=== PATIENT | male | born 1945 | race Caucasian/White ===

== ENCOUNTER 2018-01-25 06:20 | Day surgery (SDC) | payer MEDICARE, BC ==
[~2018-01-25] VITALS: Ht 177.8 cm; Wt 92.5 kg
--- NOTE | 2018-01-25 07:55 | NUR ---
01/25/18 0755 Lynnette Jang 4806 PT ARRIVED IN PACU SLEEPY WITH NO C/O'S. ABD FIRM. ENCOURAGED PT TO PASS FLATUS. 0750 DR AT BEDSIDE TALKING TO PT. OXYGEN DECREASED TO 2L VIA NC WITH SATS 95%.
--- NOTE | 2018-01-25 13:21 | NUR ---
PT IN FOR FOLLOW UP SCOPE. HE IS ALERT, ORIENTED AND SUPPORTED BY HIS . THEY BOTH SEEM TO BE PREPARED, PT DEALT WITH PREP APPROPRIATELY. PT DECLINED PRAYER AT THIS TIME. WILL FOLLOW NEEDED
--- NOTE | 2018-01-26 15:24 | OR ---
[facility] [address], [place] [address] Signed DATE OF OPERATION: 01/25/2018 SURGEON: Seng Jha MD PREOPERATIVE DIAGNOSIS: History of sigmoid resection for diverticulosis in 2006, colon screening. POSTOPERATIVE DIAGNOSIS: Normal colon to cecum. PROCEDURE: Total colonoscopy to cecum. ANESTHESIA: Intravenous sedation, fentanyl 100 mcg, Versed 4 mg. INDICATION: This 72-year-old white man is a patient of Dr. Askew, now EARLE Ortiz and has undergone sigmoid resection by ky for diverticular disease in 2006. He is referred for colon screening. He is having no bleeding, diarrhea or constipation. He has no family history of colon cancer. He is admitted to undergo colonoscopy. He understands the risks of bleeding, infection, perforation. FINDINGS: The prep was excellent. Complete colonoscopy was undertaken of the cecum without problem. The anastomosis of the coloproctostomy was widely patent. He had minimal diverticular changes of the remaining left colon. DESCRIPTION OF PROCEDURE: The patient was brought to the endoscopy suite and placed in lateral decubitus position and given intravenous sedation to the point of slurred speech and nystagmus. Digital rectal examination was normal. An Olympus video colonoscope was passed in the rectum and manipulated throughout the colon ultimately intubating the cecum itself. The ileocecal valve and appendiceal orifice were normal. The scope was withdrawn from that point and examination throughout showed no sign of abnormality. The area of the coloproctostomy was carefully inspected and was widely patent. There were few scattered diverticula proximal to the anastomosis, but minimal in amount and extent. Retroflexed view of the rectum was normal. The scope was removed and the patient was taken to recovery room in good Electronically Signed By: SENG JHA MD 01/26/18 1524 PATIENT NAME: SAMANTHA MENDOZA Mora OPERATIVE REPORT DATE OF : 43 REPORT #: [id number] PHYSICIAN: SENG JHA MD PCP: CHELI MARISCAL MD REPORT IS CONFIDENTIAL AND NOT TO BE RELEASED WITHOUT AUTHORIZATION [facility] [address], [place] [address] Signed condition. CONCLUDING DIAGNOSIS: Normal colon and widely patent anastomosis from coloproctostomy. PLAN: Recommend high-fiber diet. Repeat colonoscopy in 10 years if clinically appropriate. MD JIMY Saldana/EZL /[id number] cc: EARLE Ortiz Copies: ~ Electronically Signed By: SENG JHA MD 01/26/18 1524 PATIENT NAME: REJISAMANTHA OPERATIVE REPORT DATE OF : 43 REPORT #: [id number] PHYSICIAN: SENG JHA MD PCP: CHELI MARISCAL MD REPORT IS CONFIDENTIAL AND NOT TO BE RELEASED WITHOUT AUTHORIZATION
== END 2018-01-25 08:18 | disposition home or self-care (01) ==
LOC: DS 06:20 → OPS 06:20 → DS 06:45 → OPS 08:18
PROVIDERS: Surgery
PROC: 0DJD8ZZ Inspection of Lower Intestinal Tract, Via Natural or Artificial Opening Endoscopic (ICD-10-PCS; principal; 2018-01-25 06:45)
DX: Z12.11 Encounter for screening for malignant neoplasm of colon (principal); K57.30 Diverticulosis of large intestine without perforation or abscess without bleeding; K43.2 Incisional hernia without obstruction or gangrene; Z87.19 Personal history of other diseases of the digestive system; Z90.49 Acquired absence of other specified parts of digestive tract; Z88.5 Allergy status to narcotic agent
CPT/HCPCS: 99153; G0500; J2250; J3010; J7120

== ENCOUNTER 2018-10-31 14:37 | Emergency (ER) | payer MEDICARE, BC ==
[~2018-10-31] VITALS: Ht 177.8 cm; Wt 92.5 kg
--- OUTSIDE RECORDS SUMMARY | ~2018-10-31 | XMS | Clinical Summary ---
Demographics + + + | Address | [address] | | | [place] [address] | + + + | Home Phone | | + + + | Preferred Language | Unknown | + + + | Marital Status | | + + + | Holiness Affiliation | Unknown | + + + | Race | Unknown | + + + | Ethnic Group | Unknown | + + + Author + + + | Author | [facility] | | | and [place] | + + + | Organization | [facility] | | | and [place] | + + + | Address | Unknown | + + + | Phone | Unavailable | + + + Support + + + + + | Name | Relationship | Address | Phone | + + + + + | Nedra Naylor | ECON | [address] | | | | | [place] [address] | | + + + + + Care Team Providers + +------+ + | Care Price Accuracy Supervisor Name | Role | Phone | + +------+ + | No, Physician | PP | Unavailable | + +------+ + Allergies + + + + + + | Active Allergy | Reactions | Severity | Noted | Comments | | | | | Date | | + + + + + + | Morphine | Nausea And Vomiting | | 12/11/19 | | | | | | 18 | | + + + + + + Medications + + + +---------+------+------+-------+ | Medication | Sig | Dispensed | Refills | Star | End | Statu | | | | | | t | Date | s | | | | | | Date | | | + + + +---------+------+------+-------+ | ondansetron | Take 2 tablets by | 12 | 0 | 06/0 | | Activ | | (ZOFRAN ODT) 4 mg | mouth every 8 hours | tablet | | 7/20 | | e | | disintegrating | as needed for Nausea | | | 18 | | | | tablet | or Vomiting (For | | | | | | | | vertigo). | | | | | | + + + +---------+------+------+-------+ Active Problems No known active problems Social History + +-------+ +--------+------+ | Tobacco Use | Types | Packs/Day | Years | Date | | | | | Used | | + +-------+ +--------+------+ | Never Smoker | | | | | + +-------+ +--------+------+ + +---+---+---+ | Smokeless Tobacco: | | | | | Never Used | | | | + +---+---+---+ + + +---------+ + | Alcohol Use | Drinks/We | oz/Week | Comments | | | ek | | | + + +---------+ + | Yes | | | occasional | + + +---------+ + + + + | Sex Assigned at | Date Recorded | | | | + + + | Not on file | | + + + + + + + | Job Start Date | Occupation | Industry | + + + + | Not on file | Not on file | Not on file | + + + + + + + + | Travel History | Travel Start | Travel End | + + + + + + | No recent travel history available. | + + Last Filed Vital Signs + + + + | Vital Sign | Reading | Time Taken | + + + + | Blood Pressure | 121/71 | 12/10/2017799 PDT | + + + + | Pulse | 55 | 12/10/2017799 PDT | + + + + | Temperature | 35.8 C (96.4 F) | 12/10/2017652 PDT | + + + + | Respiratory Rate | 16 | 12/10/2017652 PDT | + + + + | Oxygen Saturation | 92% | 12/10/2017799 PDT | + + + + | Inhaled Oxygen | - | - | | Concentration | | | + + + + | Weight | 92.5 kg (204 lb) | 12/10/2017652 PDT | + + + + | Height | 177.8 cm (5' 10") | 12/10/2017652 PDT | + + + + | Body Mass Index | 29.27 | 12/10/2017652 PDT | + + + + Plan of Treatment + + + + + | Health Maintenance | Due Date | Last Done | Comments | + + + + + | Vaccine: | | | | | Dtap/Tdap/Td (1 - | 3 | | | | Tdap) | | | | + + + + + | Vaccine: Zoster (1 | | | | | of 2) | 4 | | | + + + + + | Vaccine: | | | | | Pneumococcal 65+ | 9 | | | | Low/Medium Risk (1 | | | | | of 2 - PCV13) | | | | + + + + + | Vaccine: Influenza | | | | | (Season Ended) | 9 | | | + + + + + Results Not on filefrom Last 3 Months Insurance + +--------+ +--------+ +---------+--------+ | Payer | Benefi | Subscriber | Effect | Phone | Address | Type | | | t Plan | ID | oswaldo | | | | | | / | | Dates | | | | | | Group | | | | | | + +--------+ +--------+ +---------+--------+ | MEDICARE | MEDICA | [id number] | | [phone] | | Medica | | | RE | | 009-Pr | 5 | | re | | | PART A | | esent | | | | | | AND B | | | | | | + +--------+ +--------+ +---------+--------+ | BCBS | BCBS | [id number] | 07/06/19 | | | PPO | | | FEDERA | | 16-Pre | | | | | | L FEP | | sent | | | | + +--------+ +--------+ +---------+--------+ + +--------+ +--------+ + + | Guarantor Name | Accoun | Relation to | Date | Phone | Billing Address | | | t Type | Patient | of | | | | | | | | | | + +--------+ +--------+ + + | Dakota Naylor | Person | Self [birth year] | [address] RN DOCUMENT IMPROVEMENT SPECIALIST | | Yamile | al/Fam | | 1945 | [phone] | [place] [address] | | | karla | | | 1 (Home) | | + +--------+ +--------+ + + Advance Directives Patient has advance care planning documents on file. For more information, please contact:[facility] [place] [address]
--- OUTSIDE RECORDS SUMMARY | ~2018-10-31 | XMS | Clinical Summary ---
Demographics + + + | Address | [address] | | | [employer] [place] [address] | + + + | Home Phone | | + + + | Preferred Language | Unknown | + + + | Marital Status | | + + + | Sikh Affiliation | UNK | + + + | Race | White | + + + | Ethnic Group | Not or | + + + Author + + + | Organization | Unknown | + + + | Address | Unknown | + + + | Phone | Unavailable | + + + Support + + + + + | Name | Relationship | Address | Phone | + + + + + | WIL MENDOZA | [place] | [address] | | | | | [place] [address] | | + + + + + Care Team Providers + +------+ + | Care Lay Out Machine Operator Name | Role | Phone | + +------+ + PP | Unavailable | + +------+ + Source Comments LORENZO is fully live on both [facility] Ambulatory and [facility] InPatient.[facility] Allergies Not on File Current Medications Not on file Active Problems Not on file Social History + +-------+ +--------+------+ | Tobacco Use | Types | Packs/Day | Years | Date | | | | | Used | | + +-------+ +--------+------+ | Never Assessed | | | | | + +-------+ +--------+------+ + + + | Sex Assigned at | Date Recorded | | | | + + + | Not on file | | + + + Plan of Treatment + + + + + | Health Maintenance | Due Date | Last Done | Comments | + + + + + | Pneumococcal (Adult) | | | | | (1 of 2 - PCV13) | 9 | | | + + + + + | Influenza (Flu) | | | | | vaccination (#1) | 8 | | | + + + + + Results Not on filefrom Last 3 Months"
--- OUTSIDE RECORDS SUMMARY | ~2018-10-31 | XMS | Clinical Summary ---
Demographics + + + | Address | [address] | | | [place] [address] | + + + | Home Phone | | + + + | Preferred Language | Unknown | + + + | Marital Status | | + + + | Sikhism Affiliation | Unknown | + + + | Race | Unknown | + + + | Ethnic Group | Unknown | + + + Author + + + | Author | [facility] | | | and [place] | + + + | Organization | [facility] | | | and [place] | + + + | Address | Unknown | + + + | Phone | Unavailable | + + + Support + + + + + | Name | Relationship | Address | Phone | + + + + + | Nedra Naylor | ECON | [address] | | | | | [place] [address] | | + + + + + Care Team Providers + +------+ + | Care Plate Embosser Name | Role | Phone | + [...] +--------+ +---------+--------+ | MEDICARE | MEDICA | [id number] | | [phone] | | Medica | | | RE | | 009-Pr | 5 | | re | | | PART A | | esent | | | | | | AND B | | | | | | + +--------+ +--------+ +---------+--------+ | BCBS | BCBS | [id number] | 07/06/19 | | | PPO | [...] | [birth year] | | [address] RECRUITMENT OFFICER | | Yamile | al/Fam | | 1945 | [phone] | [place] [address] | | | karla | | | 1 (Home) | | + +--------+ +--------+ + + Advance Directives Patient has advance care planning documents on file. For more information, please contact:[facility] [place] [address]
--- OUTSIDE RECORDS SUMMARY | ~2018-10-31 | XMS | Clinical Summary ---
Demographics + + + | Address | [address] | | | [place] [address] | + + + | Home Phone | | + + + | Preferred Language | Unknown | + + + | Marital Status | | + + + | Sabianism Affiliation | UNK | + + + [...] | | | | | [place] [address] | | + + + + + Care Team Providers + +------+ + | Care Gi Physician Name | Role | Phone | + +------+ + PP | Unavailable | + +------+ + Source Comments LORENZO is fully live on both [facility] Ambulatory and [facility] InPatient.[facility] Allergies Not on File Current Medications Not [...]
--- NOTE | 2018-10-31 15:42 | EKG ---
[facility] [address] [facility] [place] [address] Signed Sinus bradycardia with 1st degree AV block Nonspecific intraventricular conduction delay Borderline ECG No previous ECGs available Confirmed by REN WHEELER MD ([id number]) on 10/31/2018 3:42:21 PM Electronically Signed By: REN WHEELER MD 10/31/18 1542 PATIENT NAME: SAMANTHA MENDOZA Mora Electrocardiogram DATE OF : 43 PHYSICIAN: REN WHEELER MD REPORT #: [id number] REPORT IS CONFIDENTIAL AND NOT TO BE RELEASED WITHOUT AUTHORIZATION
[2018-10-31] MEDS ORDERED: FLONASE ALLERG9.9 ML NAS (16:32)
[2018-10-31] MEDS ORDERED: MECLIZINE HCL25 MG PO (16:32)
== END 2018-10-31 16:54 | disposition home or self-care (01) ==
LOC: ED 14:37
DX: R42 Dizziness and giddiness (principal); J32.8 Other chronic sinusitis; Z88.5 Allergy status to narcotic agent
CPT/HCPCS: 36415; 70450; 80053; 85025; 85610; 93005; 93010; 99284-25

== ENCOUNTER 2020-08-10 06:45 | Day surgery (SDC) | payer MEDICARE, BC ==
[~2020-08-10 06:45] MED LIST: FLONASE ALLERG9.9 ML NAS; LEXAPRO20 MG PO; MECLIZINE HCL25 MG PO
--- NOTE | 2020-08-10 09:35 | NUR ---
08/10/20 0935 Kyra Rocha 0931- PT ARRIVES TO PACU EASILY AROUSABLE TO VOICE. PT REPORTS NO PAIN OR NAUSEA. RESP EVEN AND UNLABORED. OXYGEN SAT HIGH 90'S TO 100% ON 6L VIA MASK.
[2020-08-10] MEDS ORDERED: IBUPROFEN600 MG PO (10:02)
[2020-08-10] MEDS ORDERED: OXYCODON-ACETA1 EAC2 PO (10:02)
[2020-08-10] MEDS ORDERED: ACETAMINOPHEN500 MG PO (10:02)
[2020-08-10] MEDS ORDERED: METAMUCIL PACK3.4 GM PO (10:03)
--- NOTE | 2020-08-16 17:33 | OR ---
[facility] [address], [place] [address] Signed DATE OF OPERATION: 08/10/2020 SURGEON: Seng Jha MD PREOPERATIVE DIAGNOSIS: Anterior chronic anal fissure. POSTOPERATIVE DIAGNOSES: 1. Anterior chronic anal fissure. 2. Internal hemorrhoids. PROCEDURES: 1. Exam under anesthesia. 2. Right lateral internal sphincterotomy. ANESTHESIA: Saddle block; Chandana Avery CRNA and local 1.5 mL of 0.25% Marcaine with epinephrine. INDICATION: This 75-year-old white man is a patient of Dr. Leonardo Villarreal. 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 He was treated with conservative measures including diltiazem ointment for anal fissure, which largely healed up. 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 Options of management have been reviewed including repeat medical therapy however, he strongly wishes to proceed with a more definitive approach including lateral internal sphincterotomy. He understands well the risks of bleeding, infection, variable degrees of incontinence, recurrent fissure, and other unforeseen complications and wished to proceed. FINDINGS: The patient was incontinent following a spinal anesthetic that was administered. This may be a testimony to the completeness of the block, but also to his sphincter status generally. He had significant internal hemorrhoidal changes. Anterior chronic anal fissure was still present. The internal and external sphincter complex could easily be identified. The internal muscle was divided under direct visualization to the dentate line without problem. Mucosa closed. DESCRIPTION OF PROCEDURE: The patient was brought to the operating room having undergone spinal saddle block by the red hat linux engineer. In transferring from the stretcher to the bed, he was noted to have Electronically Signed By: SENG JHA MD 08/16/20 1733 PATIENT NAME: SAMANTHA MENDOZA OPERATIVE REPORT DATE OF : 43 REPORT #: [id number] PHYSICIAN: SENG JHA MD PCP: LEONARDO VILLARREAL MD REPORT IS CONFIDENTIAL AND NOT TO BE RELEASED WITHOUT AUTHORIZATION [facility] [address], [place] [address] Signed had fecal incontinence. He did have a mini bowel prep preoperatively. He was given intravenous sedation and preoperative antibiotic cefoxitin was given. The perineum was cleaned up and the buttocks were taped apart. Sterile preparation was undertaken, draping undertaken and examination undertaken more fully identifying well a chronic anterior anal fissure. There was no sign of posterior fissure. There were internal hemorrhoidal changes. A bivalve speculum type retractor was placed exposing well the right lateral anorectal area. Palpation revealed quite clearly the hypertrophied internal anal sphincter and the lateral external sphincter as well. A curvilinear incision was made and the area considered between the two, dissection carried with meticulous care using electrocautery through the dermis of the area. A hemostat was used to elevate the overlying anoderm from the underlying internal sphincter followed by a hemostat the external sphincter complex from the internal sphincter. The internal sphincter was hypertrophied and wide as was characteristic. Using needlepoint electrocautery, the muscle was divided to the level of the dentate line in a hemostatic way. Irrigation was undertaken. The anoderm was reapproximated with interrupted 2-0 chromic suture. 1.5 mL of 0.25% Marcaine with epinephrine injected locally. A Gel-Foam roll with bacitracin was applied to internal anal canal and the speculum removed. The perineal pad was applied. He was returned to the supine position, emerged from sedation and taken to the recovery room in good condition. BLOOD LOSS: Minimal. MD JIMY Saldana/MODL /[id number] cc: Leonardo Villarreal MD Copies: ~ Electronically Signed By: SENG JHA MD 08/16/20 1733 PATIENT NAME: SAMANTHA MENDOZA OPERATIVE REPORT DATE OF : 43 REPORT #: [id number] PHYSICIAN: SENG JHA MD PCP: LEONARDO VILLARREAL MD REPORT IS CONFIDENTIAL AND NOT TO BE RELEASED WITHOUT AUTHORIZATION
== END 2020-08-10 10:28 | disposition home or self-care (01) ==
LOC: DS 06:45
PROVIDERS: ATTEND Surgery
PROC: 0D8R0ZZ Division of Anal Sphincter, Open Approach (ICD-10-PCS; principal; 2020-08-10 08:00)
DX: K60.1 Chronic anal fissure (principal); K64.8 Other hemorrhoids; G47.33 Obstructive sleep apnea (adult) (pediatric); F41.9 Anxiety disorder, unspecified; Z95.0 Presence of cardiac pacemaker; Z87.891 Personal history of nicotine dependence; Z90.49 Acquired absence of other specified parts of digestive tract
CPT/HCPCS: 00902; J0690; J2001; J2250; J2704; J7121

== ENCOUNTER 2023-08-03 06:18 | Day surgery (SDC) | payer MEDICARE, BC ==
[~2023-08-03] VITALS: Ht 177.8 cm; Wt 91.4 kg
[~2023-08-03 06:18] MED LIST changes: +ACETAMINOPHEN500 MG PO; +IBUPROFEN600 MG PO; +LIPITOR20 MG PO; +METAMUCIL PACK3.4 GM PO; +METFORMIN HCL500 M3 PO; +OXYCODON-ACETA1 EAC2 PO; +ZESTRIL2.5 MG PO
[2023-08-03 06:42] VITALS: BP 140/77
[2023-08-03] MEDS ORDERED: ASPIRIN81 MG PO (06:47)
--- NOTE | 2023-08-03 07:24 | NUR ---
ROUNDS. PT EXHIBITED STRONG RELATIONAL RESOURCES; DECLINED PRAYER IN ROOM. PROVIDED HOSPITALITY; FACILITATED STORY-TELLING; PROVIDED SILENT PRAYER OUTSIDE ROOM.
--- NOTE | 2023-08-03 08:26 | NUR ---
08/03/23 0826 Lynnette Rahman 0805- ARRIVED IN PACU. AWAKE, A/O. DENIES ANY C/O. 0815- MD AT BEDSIDE, REVIEWING TEST RESULTS. 0821- IGOR SIPS H20 WITHOUT C/O.
[2023-08-03 08:31] VITALS: BP 99/74
--- NOTE | 2023-08-04 10:00 | OR ---
[facility] [address], [place] [address] Signed DATE OF OPERATION: 08/03/2023 SURGEON: Seng Jha MD PREOPERATIVE DIAGNOSES: 1. History of sigmoid resection for diverticulosis. 2. Family history of colon cancer (father). POSTOPERATIVE DIAGNOSIS: Normal colon to cecum except for minimal diverticular changes, left colon. PROCEDURE: Total colonoscopy to cecum. ANESTHESIA: Intravenous sedation; fentanyl 100 mcg and Versed 4 mg. INDICATION: This 78-year-old white man is a patient of Dr. Altamirano. He underwent sigmoid resection by me in the past for intractable diverticular disease. He does have family history of colon cancer in his father. He is here for surveillance colonoscopy on that basis primarily. He currently has no symptoms of bleeding, diarrhea, or constipation. He does have other medical issues including history of pacemaker placement in 2019, cochlear implant, hypertension, dyslipidemia, and sleep apnea. He is admitted at this time to undergo screening colonoscopy. He understands the risk of bleeding, infection, and perforation. FINDINGS: The prep was excellent. Complete colonoscopy was undertaken to the cecum without question. Full intubation of the cecum was accomplished. He had a few scattered diverticula of the left colon. The anastomosis was widely patent. There were no findings of polyps, cancer, or other similar finding. DESCRIPTION OF PROCEDURE: The patient was brought to the endoscopy suite and placed in the lateral decubitus position, given intravenous sedation to the point of slurred speech and nystagmus. Digital rectal examination was normal. Prostate was normal as well. An Olympus video colonoscope was passed in the rectum and manipulated throughout the colon ultimately intubating the cecum itself. The ileocecal valve and appendiceal orifice were normal. The scope was withdrawn from that point and examination showed no sign of abnormality Electronically Signed By: SENG JHA MD 08/04/23 1000 PATIENT NAME: SAMANTHA MENDOZA OPERATIVE REPORT DATE OF : 43 REPORT #: [id number] PHYSICIAN: SENG JHA MD PCP: PATSY ALTAMIRANO MD REPORT IS CONFIDENTIAL AND NOT TO BE RELEASED WITHOUT AUTHORIZATION [facility] [address], [place] [address] Signed other than a few scattered diverticula. The anastomosis was widely patent. The rectum was normal. Retroflexed view showed no other abnormality other than some internal hemorrhoids. The scope was straightened, withdrawn, and removed. The patient was taken to the recovery room in good condition. CONCLUDING DIAGNOSIS: Diverticulosis, minimal in amount. No sign of polyps. PLAN: Recommend repeat colonoscopy in 5 years based on current guidelines given family history of colon cancer in his father. MD JIMY Saldana/EZL /[id number] cc: Patsy Altamirano MD Copies: ~ Electronically Signed By: SENG JHA MD 08/04/23 1000 PATIENT NAME: SAMANTHA MENDOZA OPERATIVE REPORT DATE OF : 43 REPORT #: [id number] PHYSICIAN: SENG JHA MD PCP: PATSY ALTAMIRANO MD REPORT IS CONFIDENTIAL AND NOT TO BE RELEASED WITHOUT AUTHORIZATION
== END 2023-08-03 08:42 | disposition home or self-care (01) ==
LOC: OPS 06:18 → DS 06:18 → OPS 07:30
PROVIDERS: ATTEND Surgery
PROC: 0DJD8ZZ Inspection of Lower Intestinal Tract, Via Natural or Artificial Opening Endoscopic (ICD-10-PCS; principal; 2023-08-03 07:30)
DX: Z12.11 Encounter for screening for malignant neoplasm of colon (principal); K60.2 Anal fissure, unspecified; Z80.0 Family history of malignant neoplasm of digestive organs; Z95.0 Presence of cardiac pacemaker; Z90.49 Acquired absence of other specified parts of digestive tract
CPT/HCPCS: 99153; G0500; J2250; J3010; J7121